=== PATIENT | female | born 1955 | race Caucasian/White ===

== ENCOUNTER 2025-01-01 01:32 | Day surgery (SDC) | payer MEDICARE, SELFPAY ==
[2024-12-19 10:04] VITALS: BMI 29.1
--- NOTE | 2024-12-25 09:20 | PC.NURSE ---
Report to the Outpatient Waiting Room, entrance under the green pavilion located off [facility], at time __11:00AM on date ___01/01/25____. Planned Procedure Time: ___1:00PM .? Time changes happen often and if your time is changed the preop area will call you the afternoon before. - You and your visitor will be asked to self-screen and do not enter if you have any COVID symptoms. Please call surgeon if you need to reschedule. - A mask is optional within the hospital at this time. Patients may have clear liquids (water, carbonated beverages, clear teas, apple juice) until 3 hours prior to surgery (10:00AM) with a maximum of 20 ounces. - No food from midnight until time of surgery and no smoking, or chewing tobacco (or any form of nicotine). No chewing gum, candy or mints. Take only the following medications with a SIP of water on the morning of surgery: NONE DO NOT STOP ANY OF YOUR OTHER PRESCRIPTION MEDICATIONS PRIOR TO SURGERY EXCEPT THE FOLLOWING Hold all vitamins and supplements for 3 days per anesthesiologist.- LAST DOSE 12/28/24 Please no make-up, nail amharic, hairspray, perfume, deodorant, or body powder the day of surgery.? No jewelry (including any body piercings) or valuables the day of surgery, leave them at home.? Please take a shower or bath the night before, or the morning of, surgery with an antibacterial soap.? Wear comfortable, loose fitting clothing. - Jewelry must be removed prior to entering the operating room.? Rings and piercings that are not removed may be cut off. - The hospital will not accept responsibility for valuables.? - Please leave all valuables, including medications, at home the day of surgery. If you are going home after surgery, a licensed bung driver must drive you home.? - NO public transportation without another adult if you receive anesthesia. - We recommend that an adult stay with you for 24 hours following discharge. - We also recommend that you do not drive, make important decision, drink alcoholic beverages, or take any drugs that were not prescribed by your health care provider for at least 24 hours after your discharge time. Follow any additional instructions given to you from your surgeon. Telephone instructions given to ____PATIENT and asked if any additional questions and then verbalized understanding. Patient advised to call surgeon office or pre surgery nurse liaison [phone] if any additional questions.
[2025-01-01 11:24] VITALS: BP 162/68; PULSE 67; RESP 16; TEMP 36.4; O2SAT 100; BMI 29.3
[2025-01-01] MEDS: LACTATED RINGERS 1,000 ML 30 ML IV CONT (11:50)
[2025-01-01] MEDS: ACETAMINOPHEN 500 MG TABLET 1000 MG PO (11:56)
--- NOTE | 2025-01-01 12:26 | WPDANESEPPF ---
Anes - Initial Pre Proc Eval Procedure: Operation Date: 01/01/25 13:00 Proposed Procedures p Hysteroscopy, Dilation and Curettage, Polypectomy - Perez Martinez MD Date/Time: 01/01/25 12:26 Surgeon: Perez Martinez MD Pre Op Diagnosis: post menopausal bleeding, uterine polyp Patient Data Age: 69 Gender: F Height: 1.63 m Weight: 77.6 kg Last Vital Signs Temp 97.6 F 01/01/25 11:24 Pulse 67 01/01/25 11:24 Resp 16 01/01/25 11:24 BP 162/68 H 01/01/25 11:24 Pulse Ox 100 01/01/25 11:24 O2 Del Method Room Air 01/01/25 11:24 Allergies Allergy/AdvReac Type Severity Reaction Status Date / Time clindamycin AdvReac ELEVATED Verified 01/01/25 11:30 HEART RATE, DIZZINESS Home Medications ?Medication ?Instructions ?Recorded ?Confirmed ?Type calcium 600 mg (as 1 tablet PO DAILY 12/19/24 01/01/25 History carbonate)-vitamin D3 5 mcg (200 unit) tablet (Calcium 600 + D(3)) cholecalciferol (vitamin D3) 50 2,000 unit PO DAILY 12/19/24 01/01/25 History mcg (2,000 unit) capsule cranberry 500 mg capsule 500 mg PO DAILY 12/19/24 01/01/25 History lisinopril 20 mg tablet 20 mg PO QAM 12/19/24 01/01/25 History pravastatin 20 mg tablet 10 mg PO 3XW 12/19/24 01/01/25 History raloxifene 60 mg tablet 60 mg PO DAILY 12/19/24 01/01/25 History Patient hx anesthesia problems: none Family hx anesthesia problems: none Results Review: All pre-operative results and documents have been reviewed as part of the pre-operative evaluation. [facility] Social History Social History Smoking status: Never smoker Living arrangements: with family Additional living arrangements comments: [place] Spiritual care concerns: No Anes - Eval Final PreProcedure Day of Procedure 01/01/25 12:26 Patient weight: normal Lungs: normal air movement Airway: Mallampati scale class II Neurological: alert and oriented Last oral intake: >/= 8 hours ASA classification: II Emergent: no Anesthetic plan: proceed Anesthesia type and monitoring: general GIVS and standard monitoring Results Review: All pre-operative results and documents have been reviewed as part of the pre-operative evaluation. HTN, hyperlipidemia, hx of stess test approx 2019, reported as nml by pt. Pt can walk 1-2 fos without cp or sob. Informed Consent: The patient's anesthetic plan and its attendant risks and benefits were discussed with the patient/family/POA. Questions were solicited and answers provided to the satisfaction of the patient/family/POA.
--- NOTE | 2025-01-01 12:27 | PM.IMHP ---
H&P: HPI History of Present Illness Date/Time: 01/01/25 12:27 Chief Complaint: Bleeding Narrative: 69 y/o who has had vaginal spotting. Ultrasound exam shows an endometrial mass. Review of Systems Review of Systems: All systems reviewed & are unremarkable except as noted in HPI and below PMFSH Past Medical History Medical History History of skin cancer History of osteopenia History of hyperlipidemia History of chronic hypertension Surgical History Surgical History History of appendectomy Social History Social History Smoking status: Never smoker Living arrangements: with family Additional living arrangements comments: [place] Spiritual care concerns: No Meds Home Medications and Allergies Home Medications ?Medication ?Instructions ?Recorded ?Confirmed ?Type calcium 600 mg (as 1 tablet PO DAILY 12/19/24 01/01/25 History carbonate)-vitamin D3 5 mcg (200 unit) tablet (Calcium 600 + D(3)) cholecalciferol (vitamin D3) 50 2,000 unit PO DAILY 12/19/24 01/01/25 History mcg (2,000 unit) capsule cranberry 500 mg capsule 500 mg PO DAILY 12/19/24 01/01/25 History lisinopril 20 mg tablet 20 mg PO QAM 12/19/24 01/01/25 History pravastatin 20 mg tablet 10 mg PO 3XW 12/19/24 01/01/25 History raloxifene 60 mg tablet 60 mg PO DAILY 12/19/24 01/01/25 History Allergies Allergy/AdvReac Type Severity Reaction Status Date / Time clindamycin AdvReac ELEVATED Verified 01/01/25 11:30 HEART RATE, DIZZINESS Vital Signs Vital Signs - 24 hr 01/01/25 11:24 Temperature 36.4 C Pulse Rate 67 Respiratory Rate 16 Blood Pressure 162/68 H Pulse Oximetry 100 Oxygen Delivery Room Air Exam Const: Orientation/consciousness: patient oriented x3 Other: Well-developed, well-nourished female in no acute distress. Neck: Thyroid: thyroid normal Lymphatic: no lymphadenopathy noted (in neck, axilla or inguinal nodes) Resp: Effort & Inspection: normal respiratory effort Auscultation: clear to auscultation bilaterally Cardio: Rate: regular rate Rhythm: regular rhythm Heart sounds: S1 normal heart sound present and S2 normal heart sound present GI: Other: ABD: Soft, nontender, nondistended. No guarding or rebound tenderness. No hepatosplenomegaly. : General: Yes no CVA tenderness Other: External genitalia: normal female hair distribution, without lesion. Urethral meatus: no lesion, non prolapsed. Bladder: no mass, nontender Vagina: poorly-estrogenized, without lesion or discharge. No cystocele or rectocele. Cervix: no lesion or discharge. Uterus: small, anteverted, freely mobile, nontender Adnexa: no mass or tenderness. Anus/perineum: no lesions, nontender Back/Spine/Pelvis: Back: no CVA tenderness Skin: General skin exam: normal color and no rashes or lesions noted Neuro: General: patient oriented x3 Extrem: Other: Extremities: nontender with no edema Psych: Mental Status: mental status grossly normal Affect: normal affect Assessment and Plan Assessment and plan (1) Postmenopausal bleeding: Code(s): N95.0 - Postmenopausal bleeding Status: Acute Assessment and Plan: A: Postmenopausal vaginal bleeding with abnormal pelvic ultrasound. P: Offered hysteroscopy with dilation and sharp curettage and possible endometrial polypectomy. She understands risks of surgery to include risks of anesthesia, risks of pain, infection, bleeding, blood products, thromboembolic phenomena and damage to adjacent structures such as bowel, bladder, ureters, blood vessels and nerves. She understands all these risks and elects to proceed with surgery. (2) Abnormal pelvic ultrasound: Code(s): R93.89 - Abnormal findings on diagnostic imaging of other specified body structures Status: Acute
--- NOTE | 2025-01-01 12:30 | WPDHPUPDATE1 ---
History and Physical Update Update Date/Time: 01/01/25 12:30 History and Physical has been reviewed, including an updated exam of the patient. There are NO changes in the patient's condition. Risks, benefits, and alternatives have been discussed and questions answered. Patient agrees to proceed with procedure.
[2025-01-01] MEDS: LIDOCAINE 1% LOCAL INJ 10 ML VIAL INFILTRATE (13:10)
--- NOTE | 2025-01-01 13:42 | W.PM.PROC2 ---
Procedure Note - Detailed Date of Procedure 01/01/25 Pre-op Diagnosis Postmenopausal vaginal bleeding Abnormal pelvic ultrasound Post-op Diagnosis Same Procedure Performed Hysteroscopy Dilation and sharp curettage Surgeon Perez Martinez MD Anesthesia MAC and Local (1% lidocaine) Findings Thickened endometrial tissue. Both tubal ostia seen. Description of Procedure The patient was taken to the operating room where she was prepared and draped in the usual sterile fashion in the dorsal lithotomy position. The bladder was drained with a red rubber catheter. A sterile speculum was placed into the vagina. The anterior lip of the cervix was grasped with single-tooth tenaculum. Ten mL of 1% lidocaine was administered in a paracervical block. The cervix was then gently dilated using Hegar dilators until a 7 mm dilator could be passed. Hysteroscopy was performed using sterile saline as a distention medium. Findings are as noted above. Sharp curettage was then performed, and endometrial curettings were collected on a Telfa pad and passed off to be sent to pathology. Hemostasis was excellent. Sponge, lap, needle and instrument counts were correct. The patient was awakened and taken to the recovery room in stable condition. I was present and scrubbed through the entire procedure. Estimated Blood Loss 5 Drains No Packing No Pathology Yes (Endometrial curettings) Complications None Condition Stable Disposition PACU
[2025-01-01 13:45] VITALS: BP 115/71; PULSE 63; RESP 20; O2SAT 100
[2025-01-01 14:15] VITALS: BP 110/54; PULSE 51; RESP 20
[2025-01-01 14:37] VITALS: BP 110/54; PULSE 51; RESP 20
== END 2025-01-01 14:39 | disposition home or self-care (01) ==
PROVIDERS: Visit Provider Obstetrics & Gynecology
PROC: 0U5B8ZZ Destruction of Endometrium, Via Natural or Artificial Opening Endoscopic (ICD-10-PCS; CPT 58563; principal; 2025-01-01 13:00)
DX: R93.89 Abnormal findings on diagnostic imaging of other specified body structures (principal); N85.02 Endometrial intraepithelial neoplasia [EIN]; G89.18 Other acute postprocedural pain; E78.5 Hyperlipidemia, unspecified; I10 Essential (primary) hypertension; M85.88 Other specified disorders of bone density and structure, other site; Z79.810 Long term (current) use of selective estrogen receptor modulators (SERMs); Z98.890 Other specified postprocedural states; Z85.828 Personal history of other malignant neoplasm of skin
CPT/HCPCS: 58558; 88305; 88342; A9270; J2003; J2250; J2405; J2704; J3010; J7120

== ENCOUNTER 2025-03-17 13:29 | Outpatient (CLI) | payer MEDICARE, SELFPAY ==
--- NOTE | 2025-03-17 13:43 | ECG_ITS ---
Test Date: 2025-03-17 13:54:22 Measurements Intervals [place] Rate: 67 P: 50 [place]: 119 QRS: -3 QRSD: 81 T: 39 QT: 388 QTc: 411 Interpretive Statements SINUS RHYTHM WITH SHORT [place] INTERVAL WITH OCCASIONAL SUPRAVENTRICULAR PREMATURE COMPLEXES DELAYED PRECORDIAL R/S TRANSITION LOW QRS VOLTAGE IN PRECORDIAL LEADS CONSIDER INFERIOR INFARCT, AGE INDETERMINATE ABNORMAL ECG No previous ECG available for comparison Electronically Signed On 03-17-2025 13:56:10 CDT by Tucker Cortez D.O.
--- OUTSIDE RECORDS SUMMARY | 2025-03-17 14:36 | XMS_ITS | Encounter Summary ---
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 Name Role Phone Kirt King MD Primary Care Provider [phone] Yoly Parra Primary Care Provider [phone] Giovanny Verma MD Primary Care Provider [phone] Aicha Buckley MD Primary Care Provider [phone] Encounter Details Date Type Department Care Team (Late st Contact Info) Description 03/09/2019 Abstract SFL CONVERSION [address] [place] [address] , Generic Conversion, Social History Tobacco Use Types Packs/Day Years Used Date Smoking Tobacco: Never Smokeless Tobacco: Never Alcohol Use Standard Drinks/Week Comments No 0 (1 standard drink = 0.6 oz pur e alcohol) AUDIT-C Answer Date Recorded Frequency of Alcohol Consumption Never 03/06/2019 Average Number of Drinks Not on file 019 Frequency of Binge Drinking Not on file 01/2019 Comments No Sex and Gender Information Value Date Recorded Sex Assigned at Not on file Legal Sex Female 11:28 PM [employer] ESC[employer] Gender Identity Not on file Sexual Orientation Not on file documented as of this encounter Plan of Treatment Not on file documented as of this encounter Visit Diagnoses Not on filedocumented in this encounter Care Teams Small Engine Mechanic Relationship Specialty Start Date End Date Kirt King MD [address] [place] [address] PCP - General FAMILY PRACTICE 02/16/19 04/15/20 Yoly Parra AP[place] [address] [place] [id number] PCP - General NURSE PRACTITIONER 04/16/20 12/30/20 Giovanny Verma MD [address] [place] [id number] PCP - General FAMILY PRACTICE 12/31/20 10/24/24 Aicha Buckley MD [address] [place] [address] PCP - General FAMILY PRACTICE 10/25/24 documented as of this encounter
--- OUTSIDE RECORDS SUMMARY | 2025-03-17 14:36 | XMS_ITS | Clinical Summary ---
Author Organization 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 Active calcium citrate 200 MG Tab 1 tablet daily. 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 Gender Identity Not on file Sexual Orientation Not on file Last Filed Vital Signs Vital Sign Reading Time Taken Comments Blood Pressure 132/80 03/06/2019 2:15 PM CDT Pulse 77 03/06/2019 2:15 PM CDT Temperature 36.7 C (98 F) 03/06/2019 2:15 PM CDT Respiratory Rate 20 03/06/2019 2:15 PM CDT Oxygen Saturation 95% 03/06/2019 2:15 PM CDT Inhaled Oxygen Concentration - - Weight 81.5 kg (179 lb 9.6 oz) 03/06/2019 2:15 P M CDT Height 165.1 cm (5' 5) 03/06/2019 2:15 PM CDT Body Mass Index 29.89 03/06/2019 2:15 PM CDT Plan of Treatment Health Maintenance Due Date Last Done Comments Colorectal Cancer Screening Colonoscopy (10 Years) 1955 Hepatitis C 1973 DTaP, Tdap and Td Vaccines (1 - Tdap) 1974 Pneumococcal Vaccine: 50+ Years (1 of 1 - PCV) 2005 Zoster Vaccines (1 of 2) 2005 Annual Medicare Wellness Visit 2020 COVID-19 Vaccine ( season) 2024 12/15/2020, 11/17/2020 Mammogram Screening 05/23/2026 05/23/2024, 05/22/2023, 05/19/2022, Additional history exists RSV Immunization or 60+ Years (1 - 1-dose 75+ series) 2030 Dexa Scan (General) Completed 05/22/2023, 1 Meningococcal B Vaccine Aged Out No l onger eligible based on patient's age to complete this topic Meningococcal Vaccine Aged Out No daniel sumit eligible based on patient's age to complete this topic RSV Immunizations Under 20 Months Aged Out No longer eligible based on patient's age to complete this topic Procedures Procedure Name Priority Date/Time Associated Diagnosis Comments MG SCREENING W SREEKANTH MASTER DIGI Routine 05/23/2024 10:45 AM CDT Visit for screening mammogram BONE DENSITY/DEXA Routine 05/22/2023 3:2 0 PM CDT Postmenopausal from Last 3 Months or Most Recently Relevant to Health Maintenance Results * MG SCREENING W SREEKANTH MASTER DIGI (05/23/2024 10:45 AM CDT) Anatomical Region Laterality Modality Breast Bilateral Mammography 05/24/2024 8:01 AM CDT Impressions 05/24/2024 8:02 AM CDT ===== IMPRESSION: ===== 1. Stable mammographic appearance with no new findings to suggest malignancy in either breast. Assessment: ACR BI-RADS 2 - BENIGN FINDING(S) Recommendation: 1:Routine Screening Bilateral Comments: Ordered By: YOLY PINZON Interpreted By: Sunny Cisneros MD, 05/24/2024 8:01 AM Narrative 05/24/2024 8:02 AM CDT Examination: Digital bilateral screening mammogram with 3D Tomosynthesis Exam Date/Time: 05/23/2024 10:44 AM Reason For Exam: No prior breast procedures. No personal history of breast cancer. Breast cancer in mother at age 68. No current complaints. Comparison: Mammograms from 05/22/2020 12/07/1821 05/17/2021 Technique: Digital screening mammography of both breasts was performed in addition to 3-D Tomosynthesis technique. This study was read with the assistance of a computer-aided detection system. Tissue density: There are scattered areas of fibroglandular density. Findings: Mole marker on the right. Benign rounded calcifications on the right. No suspicious interval change in parenchymal pattern from prior studies. There is no new focal asymmetry, dominant mass lesion, area of skin thickening, or cluster of suspicious appearing calcifications in either breast to suggest malignancy. us Yoly Pinzon APNP MAMMO Final Resul t * BONE DENSITY/DEXA (05/22/2023 3:20 PM CDT) Anatomical Region Laterality Modality Bone Bone Density 05/22/2023 10:5 3 AM CDT Impressions 05/22/2023 10:57 AM CDT Impression: 1. Consistent with osteoporosis in the lumbar spine with increase in bone mineral density as described. 2. Consistent with osteopenia in both hips with slight increase in bone mineral density as described. Ordered By: YOLY PINZON Interpreted By: Reinaldo Hernández MD, 05/22/2023 10:53 AM Narrative 05/22/2023 10:57 AM CDT Examination: DEXA Bone densitometry Clinical history: Postmenopausal. Receiving treatment for osteoporosis. Follow- up. Comparison: 12/31/2020. Technique: DEXA bone mineral density evaluation was performed in the AP projection over the lumbar spine and over both hips in the AP projection utilizing standard imaging techniques. Assessment: The BMD measured at the AP spine L1-L4 is 0.698 g/cm2 with a T-score of -3.2 and a Z-score of -1.2. This represents an approximate 4% increase from previous. This patient is considered osteoporotic according to the world health organizations (WHO) criteria. Fracture risk is high. Pharmacological treatment, if not already prescribed should be considered. If pharmacological treatment is utilized, a followup bone density is recommended in one year to monitor response to therapy. The BMD measured at the femoral neck left is 0.588 g/cm2 with a T-score of -2.4 and a Z-score of -0.7. When compared in similar fashion this represents an approximate 1% increase from previous. The patient is considered osteopenic according to World Health Organization (WHO) criteria. Bone density is between 10 and 25% below young normal. Fracture risk is moderate. Treatment is advised. The BMD measured at the femoral neck right is 0.634 g/cm2 with a T-score of -1.9 and a Z-score of -0.3. When compared in similar fashion, this represents an approximate 1% increase from previous. The patient is considered osteopenic according to World Health Organization (WHO) criteria. Bone density is between 10 and 25% below young normal. Fracture risk is moderate. Treatment is advised. FRAX 10-year fracture risk: Major Osteoporotic Fracture: 13%. Hip Fracture: 2.6%. Recommendations: All patients should ensure an adequate intake of dietary calcium and vitamin D. The NOF recommend adults under the age of 50 need 1000 mg of calcium and 400-800 IU of vitamin D daily. Effective therapy for the prevention and treatment of osteoporosis include biphosphonates. Follow-up: People with diagnosed cases of osteoporosis or at high risk for fracture should have regular bone mineral density test. For patients eligible for Medicare, routine testing is allowed once every 2 years. Testing frequency can be increased to one year for patients who have rapidly progressing disease, those who are receiving or discontinuing medical therapy to restore bone mass, or have additional risk factors. Based on these results, a followup exam is recommended in 1-2 years. Procedure Note Reinaldo Hernández MD - 05/22/2023 Examination: DEXA Bone densitometry Clinical history: Postmenopausal. Receiving treatment for osteoporosis.Follow- up. Comparison: 12/31/2020. Technique: DEXA bone mineral density evaluation was performed in the APprojection over the lumbar spine and over both hips in the AP projectionutilizing standard imaging techniques. Assessment: The BMD measured at the AP spine L1-L4 is 0.698 g/cm2 with a T-score of-3.2 and a Z-score of -1.2. This represents an approximate 4% increasefrom previous. This patient is considered osteoporotic according to theworld health organizations (WHO) criteria. Fracture risk is high.Pharmacological treatment, if not already prescribed should be considered.If pharmacological treatment is utilized, a followup bone density isrecommended in one year to monitor response to therapy. The BMD measured at the femoral neck left is 0.588 g/cm2 with a T-score of-2.4 and a Z-score of -0.7. When compared in similar fashion thisrepresents an approximate 1% increase from previous. The patient isconsidered osteopenic according to World Health Organization (WHO)criteria. Bone density is between 10 and 25% below young normal. Fracturerisk is moderate. Treatment is advised. The BMD measured at the femoral neck right is 0.634 g/cm2 with a T-scoreof -1.9 and a Z-score of -0.3. When compared in similar fashion, thisrepresents an approximate 1% increase from previous. The patient isconsidered osteopenic according to World Health Organization (WHO)criteria. Bone density is between 10 and 25% below young normal. Fracturerisk is moderate. Treatment is advised. FRAX 10-year fracture risk: Major Osteoporotic Fracture: 13%. Hip Fracture: 2.6%. Recommendations: All patients should ensure an adequate intake of dietary calcium andvitamin D. The NOF recommend adults under the age of 50 need 1000 mg ofcalcium and 400-800 IU of vitamin D daily. Effective therapy for theprevention and treatment of osteoporosis include biphosphonates. Follow-up: People with diagnosed cases of osteoporosis or at high risk for fractureshould have regular bone mineral density test. For patients eligible forMedicare, routine testing is allowed once every 2 years. Testing frequencycan be increased to one year for patients who have rapidly progressingdisease, those who are receiving or discontinuing medical therapy torestore bone mass, or have additional risk factors. Based on these results, a followup exam is recommended in 1-2 years. Impression: 1. Consistent with osteoporosis in the lumbar spine with increase in bonemineral density as described. 2. Consistent with osteopenia in both hips with slight increase in bonemineral density as described. 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
== END 2025-03-17 13:30 | disposition home or self-care (01) ==
LOC: ANHSURGERY 13:34
PROVIDERS: Visit Provider Obstetrics & Gynecology
DX: N95.0 Postmenopausal bleeding (principal); I10 Essential (primary) hypertension; R94.31 Abnormal electrocardiogram [ECG] [EKG]
CPT/HCPCS: 36415; 86850; 86900; 86901; 93005

== ENCOUNTER 2025-03-19 01:35 | Day surgery (SDC) | payer MEDICARE, SELFPAY ==
[2025-03-07 11:59] VITALS: BMI 29.1
--- NOTE | 2025-03-07 12:27 | PC.NURSE ---
Report to the Outpatient Waiting Room, entrance under the green pavilion located off [facility], at time __10:00AM on date ____03/19/25___. Planned Procedure Time: __12:00PM .? Time changes happen often and if your time is changed the preop area will call you the afternoon before. - You and your visitor will be asked to self-screen and do not enter if you have any COVID symptoms. Please call surgeon if you need to reschedule. - A mask is optional within the hospital at this time. Patients may have clear liquids (water, carbonated beverages, clear teas, apple juice) until 3 hours prior to surgery (9:00AM) with a maximum of 20 ounces. - No food from midnight until time of surgery and no smoking, or chewing tobacco (or any form of nicotine). No chewing gum, candy or mints. Take only the following medications with a SIP of water on the morning of surgery: __NONE DO NOT STOP ANY OF YOUR OTHER PRESCRIPTION MEDICATIONS PRIOR TO SURGERY EXCEPT THE FOLLOWING Hold all vitamins and supplements for 3 days per anesthesiologist. -LAST DOSE 03/15/25. Please no make-up, nail bulgarian, hairspray, perfume, deodorant, or body powder the day of surgery.? No jewelry (including any body piercings) or valuables the day of surgery, leave them at home.? Please take a shower or bath the night before, or the morning of, surgery with an antibacterial soap.? Wear comfortable, loose fitting clothing.? - Jewelry must be removed prior to entering the operating room.? Rings and piercings that are not removed may be cut off. - The hospital will not accept responsibility for valuables.? - Please leave all valuables, including medications, at home the day of surgery. If you are going home after surgery, a licensed locomotive driver must drive you home.? - NO public transportation without another adult if you receive anesthesia. - We recommend that an adult stay with you for 24 hours following discharge. - We also recommend that you do not drive, make important decision, drink alcoholic beverages, or take any drugs that were not prescribed by your health care provider for at least 24 hours after your discharge time. Follow any additional instructions given to you from your surgeon. Telephone instructions given to ___PATIENT and asked if any additional questions and then verbalized understanding. Patient advised to call surgeon office or pre surgery nurse liaison [phone] if any additional questions.
[2025-03-19] VITALS (10 sets, daily range): BP systolic 127–156; BP diastolic 67–86; PULSE 49–85; RESP 12–20; TEMP 36.5–37.4; O2SAT 97–100; BMI 29.4
--- NOTE | 2025-03-19 08:57 | PM.IMHP ---
H&P: HPI History of Present Illness Date/Time: 03/19/25 08:57 Chief Complaint: Endometrial hyperplasia Narrative: 69 y/o female who had a hysteroscopy D&C for postmenopausal bleeding. Pathology report showed complex atypical endometrial hyperplasia. Because of the risk of malignant transformation, I have offered definitive management with hysterectomy. Review of Systems Review of Systems: All systems reviewed & are unremarkable except as noted in HPI and below PMFSH Past Medical History Medical History History of skin cancer History of osteopenia History of hyperlipidemia History of chronic hypertension Surgical History Surgical History History of D&C History of appendectomy Social History Social History Smoking status: Never smoker Alcohol intake: current Living arrangements: with family Additional living arrangements comments: HUSB Spiritual care concerns: No Meds Home Medications and Allergies Home Medications ?Medication ?Instructions ?Recorded ?Confirmed ?Type calcium 600 mg (as 1 tablet PO DAILY 12/19/24 03/07/25 History carbonate)-vitamin D3 5 mcg (200 unit) tablet (Calcium 600 + D(3)) cholecalciferol (vitamin D3) 50 2,000 unit PO DAILY 12/19/24 03/07/25 History mcg (2,000 unit) capsule cranberry 500 mg capsule 500 mg PO DAILY 12/19/24 03/07/25 History lisinopril 20 mg tablet 20 mg PO QAM 12/19/24 03/07/25 History pravastatin 20 mg tablet 10 mg PO 3XW 12/19/24 03/07/25 History raloxifene 60 mg tablet 60 mg PO DAILY 12/19/24 03/07/25 History Allergies Allergy/AdvReac Type Severity Reaction Status Date / Time clindamycin AdvReac ELEVATED Verified 03/07/25 11:57 HEART RATE, DIZZINESS Exam Const: Orientation/consciousness: patient oriented x3 Other: Well-developed, well-nourished female in no acute distress. Neck: Thyroid: thyroid normal Lymphatic: no lymphadenopathy noted (in neck, axilla or inguinal nodes) Resp: Effort & Inspection: normal respiratory effort Auscultation: clear to auscultation bilaterally Cardio: Rate: regular rate Rhythm: regular rhythm Heart sounds: S1 normal heart sound present and S2 normal heart sound present GI: Other: ABD: Soft, nontender, nondistended. No guarding or rebound tenderness. No hepatosplenomegaly. : General: Yes no CVA tenderness Other: External genitalia: normal female hair distribution, without lesion. Urethral meatus: no lesion, non prolapsed. Bladder: no mass, nontender Vagina: poorly-estrogenized, without lesion or discharge. No cystocele or rectocele. Cervix: no lesion or discharge. Uterus: small, anteverted, freely mobile, nontender Adnexa: no mass or tenderness. Anus/perineum: no lesions, nontender Back/Spine/Pelvis: Back: no CVA tenderness Skin: General skin exam: normal color and no rashes or lesions noted Neuro: General: patient oriented x3 Extrem: Other: Extremities: nontender with no edema Psych: Mental Status: mental status grossly normal Affect: normal affect Assessment and Plan Assessment and plan (1) Complex atypical endometrial hyperplasia: Code(s): N85.02 - Endometrial intraepithelial neoplasia [EIN] Status: Acute Assessment and Plan: A: Complex atypical endometrial hyperplasia. P: We reviewed medical as well as surgical approaches, and she elects to undergo definitive management with hysterectomy. Specifically, I have offered robotic assisted total vaginal hysterectomy with bilateral salpingo-oophorectomy. She understands risks of surgery to include risks of anesthesia, risks of pain, infection, bleeding, blood products, thromboembolic phenomena and damage to adjacent structures such as bowel, bladder, ureters, blood vessels and nerves. She understands all these risks and elects to proceed with surgery.
[2025-03-19] MEDS: LACTATED RINGERS 1,000 ML 30 ML IV CONT ×2 (11:15→13:41)
[2025-03-19] MEDS: ACETAMINOPHEN 500 MG TABLET 1000 MG PO ×2 (11:15→17:42)
[2025-03-19] MEDS: KETOROLAC 15 MG/ML VIAL (*BKC) IV PUSH (11:20)
--- NOTE | 2025-03-19 11:43 | WPDANESEPPF ---
Anes - Initial Pre Proc Eval Procedure: Operation Date: 03/19/25 12:00 Proposed Procedures p Robotic Assisted Total Vaginal Hysterectomy with Bilateral Salpingo-oophorectomy - Perez Martinez MD Date/Time: 03/19/25 11:43 Surgeon: Perez Martinez MD Pre Op Diagnosis: Ppst Menopausal Bleeding Patient Data Age: 69 Gender: F Height: 1.63 m Weight: 77.7 kg Last Vital Signs Temp 99.3 F 03/19/25 11:20 Pulse 83 03/19/25 11:20 BP 156/86 H 03/19/25 11:20 Pulse Ox 98 03/19/25 11:20 O2 Del Method Room Air 03/19/25 11:20 Allergies Allergy/AdvReac Type Severity Reaction Status Date / Time clindamycin AdvReac ELEVATED Verified 03/19/25 11:32 HEART RATE, DIZZINESS Home Medications ?Medication ?Instructions ?Recorded ?Confirmed ?Type calcium 600 mg (as 1 tablet PO DAILY 12/19/24 03/07/25 History carbonate)-vitamin D3 5 mcg (200 unit) tablet (Calcium 600 + D(3)) cholecalciferol (vitamin D3) 50 2,000 unit PO DAILY 12/19/24 03/07/25 History mcg (2,000 unit) capsule cranberry 500 mg capsule 500 mg PO DAILY 12/19/24 03/07/25 History lisinopril 20 mg tablet 20 mg PO QAM 12/19/24 03/07/25 History pravastatin 20 mg tablet 10 mg PO 3XW 12/19/24 03/07/25 History raloxifene 60 mg tablet 60 mg PO DAILY 12/19/24 03/07/25 History Patient hx anesthesia problems: none Family hx anesthesia problems: none Results Review: All pre-operative results and documents have been reviewed as part of the pre-operative evaluation. [facility] Past Medical History Medical History History of skin cancer History of osteopenia History of hyperlipidemia History of chronic hypertension Surgical History Surgical History History of D&C History of appendectomy Social History Social History Smoking status: Never smoker Alcohol intake: current Living arrangements: with family Additional living arrangements comments: HUSB Spiritual care concerns: No Anes - Eval Final PreProcedure Day of Procedure 03/19/25 11:43 Patient weight: normal Heart: regular rate and rhythm Lungs: clear to auscultation Airway: Mallampati scale class II Neurological: alert and oriented Last oral intake: >/= 8 hours ASA classification: II Emergent: no Anesthetic plan: proceed Anesthesia type and monitoring: general ETT and standard monitoring Results Review: All pre-operative results and documents have been reviewed as part of the pre-operative evaluation. Informed Consent: The patient's anesthetic plan and its attendant risks and benefits were discussed with the patient/family/POA. Questions were solicited and answers provided to the satisfaction of the patient/family/POA.
--- NOTE | 2025-03-19 12:04 | WPDHPUPDATE1 ---
History and Physical Update Update Date/Time: 03/19/25 12:04 History and Physical has been reviewed, including an updated exam of the patient. There are NO changes in the patient's condition. Risks, benefits, and alternatives have been discussed and questions answered. Patient agrees to proceed with procedure.
[2025-03-19] MEDS: ceFAZolin 2 GM/D5W 50 ML 2 GM/50 ML BAG IVPB (12:07)
--- NOTE | 2025-03-19 13:17 | S_PTH ---
PATIENT: Dixie Richter LOC: [facility] U#:[id number] AGE/SX: 69/F ROOM: RE03/19/[address]: Perez Martinez MD : 1955 BED: DIS: 03/20/2025 SPEC #: [id number] RECD: 03/20/25 08:40 STATUS: TATUM REQ #: [id number] BETTY: 03/19/25 13:[address]: Perez Martinez DEPT: [facility] Surgical RECD BY: Bernadine Robins Tissues: A - Uterus Procedures: Hematoxylin and Eosin Stain Gross and Microscopic Level 5
--- NOTE | 2025-03-19 13:30 | W.PM.PROC2 ---
Procedure Note - Detailed Date of Procedure 03/19/25 Pre-op Diagnosis Complex atypical endometrial hyperplasia Post-op Diagnosis Same Procedure Performed Robotic assisted total vaginal hysterectomy with bilateral salpingo-oophorectomy Surgeon Perez Martinez MD Anesthesia General Findings Normal-appearing uterus, tubes and ovaries. Normal-appearing anterior and posterior cul de sac, bilateral round and uterosacral ligaments. Description of Procedure The patient was taken to the operating room where general endotracheal anesthesia was administered. She was prepared and draped in the usual sterile fashion in the dorsal lithotomy position. The bladder was drained with Boothe catheter. The cervix was visualized and the anterior lip was grasped using a single-tooth tenaculum. The cervix was gently dilated using Hegar dilators. The MICHAEL 2 uterine manipulator was then placed and the tenaculum was removed. Gloves were changed and attention was turned to the abdomen. A supraumbilical skin incision was made with the scalpel. The Veress needle was advanced and pneumoperitoneum was administered using carbon dioxide gas. The bladeless trocar was then advanced. Intraperitoneal placement was confirmed using the laparoscope. Lateral ports and an assistant manager airside operations port were all placed using bladeless trocars under direct laparoscopic visualization. She was placed in Trendelenburg position and the patient cart was docked. I assumed the console. The ureters were visualized bilaterally. The round ligament on the right was divided. The infundibulopelvic ligament was divided. The broad ligament was divided, skeletonizing the uterine artery on the right. The bladder was reflected away. The left side was similarly dissected. Colpotomy was performed circumferentially. The specimen was removed and passed off to be sent to pathology. The vaginal cuff was reapproximated using 0 Vicryl in interrupted [id number]-wz-slxso fashion. The pelvis was irrigated copiously using warmed normal saline. Rigorous hemostasis was assured. The ports were then withdrawn and the gas was allowed to escape. The skin incisions were reapproximated using 4 0 Monocryl in interrupted subcuticular fashion. Dermaflex was applied externally. Sponge, lap, needle and instrument counts were correct. The patient was awakened and taken to the recovery room in stable condition. I was present and scrubbed through the entire procedure. Implants None Estimated Blood Loss 50 Drains Yes (Boothe) Packing No Pathology Yes (Uterus, cervix, bilateral Fallopian tubes and ovaries) Complications None Condition Stable Disposition PACU
--- NOTE | 2025-03-19 13:33 | P.DS_ITS ---
DS: Admitting Diagnosis Discharge Date 03/20/25 Admitting Diagnosis Complex atypical endometrial hyperplasia DS: Discharge Diagnosis Discharge Diagnosis (1) Complex atypical endometrial hyperplasia: Code(s): N85.02 - Endometrial intraepithelial neoplasia [EIN] Status: Acute DS: Summary Hospital Course Hospital Course: She was admitted for scheduled robotic assisted TVHBSO. She did well and was able to go home on POD#1. Time Spent with Patient Time attestation: Total time spent providing and/or coordinating discharge services: DS: Data Data Completed and Pending Pending studies at discharge: Pending at discharge 03/19/25 13:17 Surgical [PTH] Routine Discharge Plan Discharge Patient Disposition: Home Discharge Instructions: Nothing in the vagina for 6 weeks. Call or return if temperature above 100.4? F, increased abdominal pain, increased vaginal bleeding or any new problems. Patient Language: [place] Stand Alone Forms: General Discharge Instructions Follow-up/Referrals: Perez Martinez MD [Physician] - 2 Weeks Discharge Medications: New oxycodone-acetaminophen [Percocet] 5-325 mg tablet 1 - 2 tablet PO Q6H PRN (Reason: pain) Qty: 30 0RF Continued lisinopril 20 mg tablet 20 mg PO QAM pravastatin 20 mg tablet 10 mg PO 3XW raloxifene 60 mg tablet 60 mg PO DAILY cholecalciferol (vitamin D3) 50 mcg (2,000 unit) capsule 2,000 unit PO DAILY calcium carbonate-vitamin D3 [Calcium 600 + D(3)] 600 mg-5 mcg (200 unit) tablet 1 tablet PO DAILY cranberry 500 mg capsule 500 mg PO DAILY Rx Instructions: administer with a meal
[2025-03-19] MEDS: fentaNYL CITRATE INJ (*CRX) 100 MCG/2 ML VIAL 25 MCG IV PUSH ×3 (13:50→15:00)
--- NOTE | 2025-03-19 15:32 | ADMGEN ---
1513-This patient, Dixie Richter, was admitted to OB 2nd Floor Room 289-00. Patient/family oriented to hospital policies and general routines including ID bracelet, bed and alarms, visiting hours, pain management, procedures, bathroom and other care routines, personal items, smoking policy, room service/diet, and visiting hours. Information on how to activate the Rapid Response Team has been discussed. Patient/Family are encouraged to report perceived risks to care and to ask questions if they do not understand what they are told or what they should do.
[2025-03-19] MEDS: DEXTROSE 5%/0.45% SOD CHL 1,000 ML 125 ML IV CONT (15:37)
[2025-03-19] MEDS: KETOROLAC 30 MG/ML VIAL (*BKC) IV PUSH (17:41)
[2025-03-19] MEDS: DOCUSATE SODIUM 100 MG CAPSULE PO (17:42)
[2025-03-19] MEDS: SIMETHICONE 80 MG TAB.CHEW PO (17:43)
[2025-03-19] MEDS: ENOXAPARIN 40 MG/0.4 ML SYRINGE SUB-Q (22:35)
[2025-03-20 00:30] VITALS: BP 137/65; PULSE 78; RESP 20; TEMP 36.8; O2SAT 97
[2025-03-20] MEDS: KETOROLAC 30 MG/ML VIAL (*BKC) IV PUSH ×2 (00:30→08:57)
[2025-03-20] MEDS: ACETAMINOPHEN 500 MG TABLET 1000 MG PO ×2 (00:30→08:59)
[2025-03-20 04:00] VITALS: BP 140/61; PULSE 71; RESP 20; TEMP 36.8; O2SAT 95
[2025-03-20 05:58] LABS: Basophils Percent Auto 0.2 % (0.2-1.2); Eosinophils Percent Auto 0.1 % (0-4.4); Hematocrit 37.5 % (37.0-47.0); Hemoglobin 12.1 g/dL (12.0-15.0); Immature Granulocyte Absolute 0.03 K/mm3 (0.00-0.031); Immature Granulocyte Percent A 0.3 % (0-0.5); Lymphocytes Absolute Auto 1.93 K/mm3 (0.9-3.2); Lymphocytes Percent Auto 17.4 % (18.3-44.2); Mean Corpuscular HGB Conc 32.3 g/dl (32-36); Mean Corpuscular Hemoglobin 32.1 pg (26-34); Mean Corpuscular Volume 99.5 fl (80-100); Mean Platelet Volume 9.9 fl (7.4-10.4); Monocytes Absolute Auto 0.8 K/mm3 (0.1-0.6); Monocytes Percent Auto 6.8 % (2.6-8.5); Neutrophils Absolute Auto 8.4 K/mm3 (1.3-6.7); Neutrophils Percent Auto 75.2 % (45.5-73.1); Platelet Count Result 186 k/mm3 (150-375); Red Blood Count 3.77 M/mm3 (4.2-5.4); Red Cell Distribution Width 12.4 % (11.5-14.5); White Blood Count 11.1 K/mm3 (4.5-10.0)
[2025-03-20 07:25] VITALS: BP 153/63; PULSE 77; RESP 16; TEMP 37.1; O2SAT 96
--- NOTE | 2025-03-20 07:31 | WPDANESPN ---
Anes - Prog Note Post-Op Date/Time: 03/20/25 07:31 Cardiovascular status: normal Respiratory status: normal Airway patency: baseline Mental status: baseline Post-Op hydration status: normal Vital Signs: Last Vital Signs Temp 36.8 C 03/20/25 04:00 Pulse 71 03/20/25 04:00 Resp 20 03/20/25 04:00 BP 140/61 03/20/25 04:00 Pulse Ox 95 03/20/25 04:00 O2 Del Method Room Air 03/19/25 19:28 O2 Flow Rate 6 03/19/25 13:55 Pain Score (VAS): 11/11 I/O: Intake & Output 03/19/25 03/19/25 03/20/25 15:59 23:59 07:59 Intake Total 550 525 Output Total 80 0090 6880 Balance 905 -709 -2324 Laboratory Tests 03/20/25 04:40 03/20/25 04:40 WBC 11.1 H RBC 3.77 L Hgb 12.1 Hct 37.5 MCV 99.5 MCH 32.1 MCHC 32.3 RDW 12.4 Plt Count 186 MPV 9.9 Immature Gran % (Auto) 0.3 Neut % (Auto) 75.2 H Lymph % (Auto) 17.4 L [place] % (Auto) 6.8 Eos % (Auto) 0.1 Baso % (Auto) 0.2 Lymph # (Auto) 1.93 [place] # (Auto) 0.8 H Eos # (Auto) 0.0 Baso # (Auto) 0.0 Abs Immat Gran (auto) 0.03 Absolute Neuts (auto) 8.4 H Absolute Nucleated RBC 0.000 Nucleated RBC % 0.0 Post-procedural complaints: none Patient Feedback: Patient satisfied with anesthetic care.
[2025-03-20 08:58] VITALS: PULSE 77; RESP 16; O2SAT 96
[2025-03-20] MEDS: SIMETHICONE 80 MG TAB.CHEW PO (08:58)
[2025-03-20] MEDS: lisinopriL 20 MG TABLET PO (08:59)
[2025-03-20] MEDS: DOCUSATE SODIUM 100 MG CAPSULE PO (08:59)
--- NOTE | 2025-03-20 10:16 | P.PNOB_ITS ---
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 Doing very well. P: Home to f/u 2 weeks. (2) Postmenopausal bleeding: Code(s): N95.0 - Postmenopausal bleeding Status: Acute Postoperative Procedures: Procedures Operation Date: 03/19/25 12:00 Actual Procedure Side Surgeon p Robotic Assisted Total Vaginal Hysterectomy with Bilateral Salpingo- oophorectomy Bilateral Perez Martinez MD Postoperative day: 1 Time Spent With Patient Time with patient: less than 15 minutes ELECTRONIC [employer]PRESS SYSTEM OPERATOR- PN:Subj Post-Op Subjective Date/time seen: 03/20/25 10:16 Interval history: Pain OK. Tolerating diet. Voiding. Would like to go home. Exam 2 Narrative: AVSS I/O OK ABD soft, nontender. Incisions c/d/i. EXT nontender ELECTRONIC PREPRESS SYSTEM OPERATOR - PN: Obj Data Vital Signs Vital Signs: Vital Signs - 24 hr 03/19/25 11:20 03/19/25 13:41 03/19/25 13:55 Temperature 37.4 C 36.5 C Pulse Rate 83 64 59 L Respiratory Rate 12 12 Blood Pressure 156/86 H 153/71 H 135/77 Pulse Oximetry 98 100 100 Oxygen Delivery Room Air Simple Face Mask Simple Face Mask Oxygen Flow Rate 8 6 03/19/25 14:10 03/19/25 14:25 03/19/25 14:40 Temperature Pulse Rate 64 49 L 60 Respiratory Rate 12 12 12 Blood Pressure 127/67 146/71 H 150/67 H Pulse Oximetry 98 97 99 Oxygen Delivery Room Air Room Air Room Air Oxygen Flow Rate 03/19/25 14:55 03/19/25 15:20 03/19/25 15:50 Temperature 36.8 C Pulse Rate 72 71 71 Respiratory Rate 19 16 16 Blood Pressure 152/74 H 149/71 H Pulse Oximetry 98 100 100 Oxygen Delivery Room Air Room Air Oxygen Flow Rate 03/19/25 19:28 03/19/25 19:28 03/20/25 00:30 Temperature 36.8 C 36.8 C Pulse Rate 85 78 Respiratory Rate 20 20 Blood Pressure 154/72 H 137/65 Pulse Oximetry 98 97 Oxygen Delivery Room Air Oxygen Flow Rate 03/20/25 04:00 06/19/25 07:25 Temperature 36.8 C 37.1 C Pulse Rate 71 77 Respiratory Rate 20 16 Blood Pressure 140/61 153/63 H Pulse Oximetry 95 96 Oxygen Delivery Oxygen Flow Rate Intake/Output Intake/Output: Intake & Output 03/17/25 03/18/25 03/19/25 03/20/25 23:59 23:59 23:59 23:59 Intake Total 1075 Output Total 1230 1550 Balance -155 -1550 Meds/Results Medications: Active Medications Generic Name Dose Route Start Last Admin Trade Name Freq PRN Reason Stop Dose Admin Acetaminophen 1,000 mg 03/19/25 18:00 03/20/25 08:59 Acetaminophen 500 Mg Tablet PO 1,000 mg Q6HR GAURI Administration Docusate Sodium 100 mg 03/19/25 17:00 03/20/25 08:59 Docusate Sodium 100 Mg Capsule PO 100 mg BID GAURI Administration Enoxaparin Sodium 40 mg 03/19/25 20:00 03/19/25 22:35 Enoxaparin 40 Mg/0.4 Ml Syringe SUB-Q 40 mg Q24H GAURI Administration Dextrose/Sodium Chloride 1,000 mls @ 125 mls/hr 03/19/25 15:03 03/19/25 17:49 Dextrose 5% Sodium Chloride 0.45% IV CONT 125 mls/hr .Q8H GAURI Infusion Ibuprofen 600 mg 03/20/25 12:00 Ibuprofen 600 Mg Tablet PO Q6HR GAURI Lisinopril 20 mg 03/20/25 09:00 03/20/25 08:59 Lisinopril 20 Mg Tablet PO 20 mg QAM GAURI Administration Morphine Sulfate 4 mg 03/19/25 15:03 Morphine Sulfate (*Crx) 4 Mg/Ml Inj IV PUSH Q4H PRN Breakthrough Pain Rated 7-10 or NPO Naloxone HCl 0.1 mg 03/19/25 15:03 Naloxone Hcl 0.4 Mg/Ml Vial IV PUSH Q2M PRN Respiratory rate less than 10 Ondansetron HCl 4 mg 03/19/25 15:03 Ondansetron Inj 4 Mg/2 Ml Vial IV PUSH Q6H PRN Nausea And Vomiting Oxycodone HCl 5 mg 03/19/25 15:03 Oxycodone Hcl (*Crx) 5 Mg Tab Ir PO Q4H PRN Pain Rated 4-6 Oxycodone HCl 10 mg 03/19/25 15:03 Oxycodone Hcl (*Crx) 5 Mg Tab Ir PO Q6H PRN Pain Rated 7-10 Simethicone 80 mg 03/19/25 17:00 03/20/25 08:58 Simethicone 80 Mg Tab.Chew PO 80 mg TIDWM GAURI Administration Labs 03/20/25 04:40 Labs: Laboratory Results - last 24 hr 03/20/25 04:40 WBC 11.1 H RBC 3.77 L Hgb 12.1 Hct 37.5 MCV 99.5 MCH 32.1 MCHC 32.3 RDW 12.4 Plt Count 186 MPV 9.9 Immature Gran % (Auto) 0.3 Neut % (Auto) 75.2 H Lymph % (Auto) 17.4 L [place] % (Auto) 6.8 Eos % (Auto) 0.1 Baso % (Auto) 0.2 Lymph # (Auto) 1.93 [place] # (Auto) 0.8 H Eos # (Auto) 0.0 Baso # (Auto) 0.0 Abs Immat Gran (auto) 0.03 Absolute Neuts (auto) 8.4 H Absolute Nucleated RBC 0.000 Nucleated RBC % 0.0
== END 2025-03-20 11:45 | disposition home or self-care (01) ==
LOC: ANHSURGERY 13:34 → ANHOB2 15:48
PROVIDERS: Visit Provider Obstetrics & Gynecology
PROC: (CPT 58552; principal; 2025-03-19 12:00)
DX: C54.1 Malignant neoplasm of endometrium (principal)
CPT/HCPCS: 58552; S2900; 36415; 85025; 88307; 99199; A9270; J0690; J1100; J1650; J1885; J2405; J2704; J3010; J7030; J7120